=== PATIENT | female | born 1995 | race Caucasian/White ===

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

== ENCOUNTER 2017-03-26 20:52 | Emergency (ER) | payer OTHER ==
[2017-03-26 23:20] LABS: HEMOGLOBIN 12.4 gm/dl (12.3-15.3); RED BLOOD COUNT 4.72 M/UL (4.00-5.10); WHITE BLOOD COUNT 7.5 K/UL (4.5-11.0)
[2017-03-26 23:41] LABS: BUN/CREATININE RATIO 20 (0-10)
== END 2017-03-27 00:24 | disposition home or self-care (01) ==
LOC: ER1 20:52
PROVIDERS: Physician Assistant
DX: R10.31 Right lower quadrant pain (principal)
CPT/HCPCS: 36415; 80053; 81001; 83690; 84703; 85025; 99284

== ENCOUNTER 2020-09-23 23:13 | Emergency (ER) | payer OTHER ==
[~2020-09-23 23:13] MED LIST: BENTYL 20MG TAB20 MG PO; CYCLOBENZAPRINE10 MG PO; CYCLOBENZAPRINE5 MG PO; FLEXERIL 10 MG10 MG PO; IBUPROFEN600 MG PO; KEFLEX500 MG PO; LEVAQUIN750 MG PO; MACROBID 100 M100 MG PO; MONISTAT 324 GM VG; NAPROSYN EC 50500 MG PO; PERCOCET 5-3251 EACH PO; PERCOCET 5/325 T1 EA PO; PREDNISONE20 MG PO; PYRIDIUM100 MG PO; REGLAN5 MG PO; TORADOL 10 MG T10 MG PO; ZOFRAN ODT 4 MG4 MG PO; ZOFRAN4 MG PO
== END 2020-09-24 00:37 | disposition left against medical advice (07) ==
LOC: ER1 23:13
DX: Z53.21 Procedure and treatment not carried out due to patient leaving prior to being seen by health care provider (principal)